=== PATIENT | male | born 1965 | race Caucasian/White ===

== ENCOUNTER → 2016-10-23 | Outpatient (CLI) | payer OTHER | LOC: ECHO 10:34 | DX: R06.02 Shortness of breath (principal); I10 Essential (primary) hypertension; R06.00 Dyspnea, unspecified | CPT/HCPCS: ECHO; 93306 ==

== ENCOUNTER → 2020-06-22 | Outpatient (CLI) | payer OTHER ==
[~2020-06-22] MED LIST: IBUPROFEN800 MG PO; MEDROL4 MG PO
== END ==
LOC: HEART 5 10:10
DX: R07.9 Chest pain, unspecified (principal)

== ENCOUNTER → 2020-08-24 | Outpatient (CLI) | payer OTHER | LOC: KOH-I 08-23 13:30 | DX: N18.30 Chronic kidney disease, stage 3 unspecified (principal) | CPT/HCPCS: 76775 ==